=== PATIENT | male | born 1970 | race Two or more races ===

== ENCOUNTER 2024-11-04 11:37 | Emergency (ER) | payer BC ==
[~2024-11-04] VITALS: Ht 167.6 cm; Wt 72.6 kg
[2024-11-04] MEDS ORDERED: METFORMIN HCL500 M3 PO (12:44)
[2024-11-04 12:47] VITALS: BP 146/80; O2SAT 100
[2024-11-04] MEDS ORDERED: LISINOPRIL20 MG PO (12:47)
[2024-11-04] MEDS ORDERED: TETANUS & DIPHTHERIA TOX,ADULT 0.5 ML VIAL IM ONE (15:30)
[2024-11-04] MEDS ORDERED: SILVER SULFADIAZINE 50 GM JAR TOP ONE (15:30)
[2024-11-04] MEDS ORDERED: CEFTRIAXONE SODIUM 1,000 MG VIAL IM ONE (15:30)
[2024-11-04] MEDS ORDERED: CEFTRIAXONE SODIUM 1,000 MG VIAL ONE (15:32)
[2024-11-04] MEDS ORDERED: AMOX-CLAV 875-1 EAC1 PO (16:27)
[2024-11-04] MEDS ORDERED: SILVADENE20 GM TOP (16:28)
== END 2024-11-04 16:35 ==
LOC: ER 11:40
DX: L55.1 Sunburn of second degree (principal); I10 Essential (primary) hypertension; E11.9 Type 2 diabetes mellitus without complications; Z79.84 Long term (current) use of oral hypoglycemic drugs